=== PATIENT | female | born 2000 | race Hispanic/Latino ===

== ENCOUNTER 2025-05-19 06:44 | Emergency (ER) | payer MEDICAID, SELFPAY ==
[2025-05-19] MEDS ORDERED: diphenhydrAMINE 25 MG CAP ONE (07:05)
== END 2025-05-19 07:17 | disposition home or self-care (01) ==
LOC: ERS 06:44
DX: T78.1XXA Other adverse food reactions, not elsewhere classified, initial encounter (principal)
CPT/HCPCS: 96372; 99282; J1100